=== PATIENT | female | born 1945 ===

== ENCOUNTER 2022-03-10 06:28 | Day surgery (SDC) | payer OTHER ==
[~2022-03-10 06:28] MED LIST: EVISTA60 MG PO; FOSINOPRIL PO; PROTONIX40 MG PO; SYNTHROID75 MCG PO
== END 2022-03-10 14:50 | disposition home or self-care (01) ==
LOC: CIR.AMB 06:28
PROVIDERS: ATTEND Colon & Rectal Surgery
DX: R15.9 Full incontinence of feces (principal); R32 Unspecified urinary incontinence; Z20.822 Contact with and (suspected) exposure to COVID-19; I10 Essential (primary) hypertension
CPT/HCPCS: 64581; 64590; 95972; C1767; C1778

== ENCOUNTER 2022-03-24 05:30 | Day surgery (SDC) | payer OTHER ==
[~2022-03-24] VITALS: Ht 154.9 cm; Wt 71.2 kg
== END 2022-03-24 10:00 | disposition home or self-care (01) ==
LOC: CIR.AMB 05:30
PROVIDERS: ATTEND Colon & Rectal Surgery
DX: R15.9 Full incontinence of feces (principal); R32 Unspecified urinary incontinence; Z20.822 Contact with and (suspected) exposure to COVID-19; I10 Essential (primary) hypertension; E03.9 Hypothyroidism, unspecified
CPT/HCPCS: 64590; 95971; C1767

== ENCOUNTER 2024-04-08 07:16 | Day surgery (SDC) | payer OTHER ==
[~2024-04-08 07:16] MED LIST changes: +ZESTRIL20 MG PO
[2024-04-08] MEDS ORDERED: CEFAZOLIN SODIUM 1,000 MG VIAL IV ONE (10:45)
[2024-04-08] MEDS ORDERED: LIDOCAINE HCL 1%/EPINEPHRINE 20ML VIAL IJ ONE (10:45)
[2024-04-08] MEDS ORDERED: BUPIVACAINE HCL 30 ML VIAL IJ ONE (10:45)
== END 2024-04-08 14:35 | disposition home or self-care (01) ==
LOC: CIR.AMB 07:16
PROVIDERS: ATTEND Colon & Rectal Surgery
DX: R15.9 Full incontinence of feces (principal); T85.111A Breakdown (mechanical) of implanted electronic neurostimulator of peripheral nerve electrode (lead), initial encounter; T85.113A Breakdown (mechanical) of implanted electronic neurostimulator, generator, initial encounter; G89.18 Other acute postprocedural pain; E03.9 Hypothyroidism, unspecified; I10 Essential (primary) hypertension